=== PATIENT | male | born 1960 | race Caucasian/White ===

== ENCOUNTER 2019-06-28 08:58 | Emergency (ER) | payer OTHER, SELFPAY ==
[2019-06-28 09:15] VITALS: BP 112/82; PULSE 63; RESP 16; TEMP 36.2; O2SAT 97
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
[2019-06-28] MEDS: TETANUS,DIPHTHERIA,AC PERTUSSIS ADULT 0.5 ML (ADACEL) IM (09:46)
== END 2019-06-28 10:06 | disposition home or self-care (01) ==
PROVIDERS: Emergency Provider Nurse Practitioner Family
DX: S61.217A Laceration without foreign body of left little finger without damage to nail, initial encounter (principal); W22.8XXA Striking against or struck by other objects, initial encounter; F17.290 Nicotine dependence, other tobacco product, uncomplicated; Z23 Encounter for immunization
CPT/HCPCS: 29130; 90471; 90715; 99213; 99214; G0463